=== PATIENT | female | born 1955 | race Caucasian/White ===

== ENCOUNTER 2018-01-14 09:45 | Inpatient (IN) ==
[2018-01-14] MEDS ORDERED: Chlorhexidine Gluconate 2% 1 Pack (2 Cloths) TOPICAL SCH (10:30)
[2018-01-14] MEDS ORDERED: Metoprolol Tartrate 25 MG Tablet PO SCH (10:30)
[2018-01-14] MEDS ORDERED: ceFAZolin 2 GM/NS 100 ML IV; Q8H IV.SIG ONE ×2 (11:00)
[2018-01-14] MEDS ORDERED: Sodium Chlor 0.9% Inj 500 ML IV.SIG SCH (11:00)
[2018-01-14 11:54] LABS: Baso # (Auto) 0.1 th/mm3 (0.0-0.2); Baso % (Auto) 0.8 % (0.0-2.0); Eos # (Auto) 0.4 th/mm3 (0.0-0.4); Eos % (Auto) 5.1 % (0.0-4.0); Hematocrit 36.8 % (35.0-46.0); Hemoglobin 12.2 gm/dL (11.6-15.3); Mean Corpuscular HGB Conc 33.2 % (32.0-36.0); Mean Corpuscular Hemoglobin 32.7 pg (27.0-34.0); Mean Corpuscular Volume 98.4 fL (80.0-100.0); Mean Platelet Volume 8.5 fL (7.0-11.0); Mono # (Auto) 0.7 th/mm3 (0.0-0.9); Mono % (Auto) 10.1 % (0.0-8.0); Neut # (Auto) 4.8 th/mm3 (1.8-7.7); Platelet Count 402 th/mm3 (150-450); Red Blood Count 3.74 mil/mm3 (4.00-5.30); Red Cell Distribution Width 14.1 % (11.6-17.2); White Blood Count 6.9 th/mm3 (4.0-11.0)
[2018-01-14] MEDS ORDERED: Neostigmine Inj 5 MG/5 ML Syringe IV.PUSH ONE (12:00)
[2018-01-14] MEDS ORDERED: Glycopyrrolate Inj 1 MG/5 ML Vial IV.PUSH ONE (12:00)
[2018-01-14] MEDS ORDERED: Lidocaine PF 1% Inj 5 ML Syringe INFILTRATN ONE (12:00)
[2018-01-14 12:07] LABS: Anion Gap 8 meq/L (5-15); Blood Urea Nitrogen 12 mg/dL (7-18); Calcium 9.3 mg/dL (8.5-10.1); Carbon Dioxide 30.8 meq/L (21.0-32.0); Chloride 105 meq/L (98-107); Glomerular Filtration Rate Greater Than 89 mL/min (>89); Glucose,Random 100 mg/dL (74-106); Sodium 144 meq/L (136-145)
[2018-01-14] MEDS ORDERED: Clindamycin Inj 600 MG/4 ML Vial ONE (13:16)
[2018-01-14] MEDS ORDERED: Ketamine Inj 500 MG/10 ML Vial ONE (13:55)
[2018-01-14] MEDS ORDERED: Morphine Inj 4 MG/ML Vial ONE (15:27)
[2018-01-14] MEDS ORDERED: Post-op Orders (for Pharmacy) OTHER STA (15:27)
[2018-01-14] MEDS ORDERED: fentaNYL Citrate Inj 100 MCG/2 ML Ampul ONE (15:27)
--- NOTE | 2018-01-14 15:34 | P.BOP ---
Date of procedure: 01/14/18 Procedure: ORIF right tibia fracture Implants: Synthes proximal tibia plate Anesthesia: GETA Surgeon: Lisandra Garcia MD Estimated blood loss (mL): 75 Pathology: none sent Condition: stable Disposition: PACU (NWB RLE)
[2018-01-14] MEDS ORDERED: HYDROmorphone PF Inj 2 MG/ML Vial ONE ×2 (15:35→16:19)
--- NOTE | 2018-01-14 15:36 | P.PNOP ---
Subjective Interval history: POD#0 s/p ORIF R tibia fracture Physical Exam Vital signs: Vital Signs 01/14/18 12:01 Temperature 97.9 F Pulse Rate 64 Respiratory Rate 18 Blood Pressure 135/74 Pulse Oximetry 97 Intake & Output 01/13/18 01/14/18 01/14/18 18:59 06:59 18:59 Intake Total 1500 / 1500 Output Total 225 / 225 Balance 1275 / 1275 Weight 62 kg Intake: Anesthesia Amount 1500 / 1500 Output: Urine 150 / 150 Estimated Blood Loss 75 / 75 Other: Weight On Admission 62 kg Results - Labs CBC & Chem 7: 01/14/18 11:30 01/14/18 11:30 Laboratory Results - last 24 hr 01/14/18 01/14/18 11:30 11:30 WBC 6.9 RBC 3.74 L Hgb 12.2 Hct 36.8 MCV 98.4 MCH 32.7 MCHC 33.2 RDW 14.1 Plt Count 402 MPV 8.5 Neut % (Auto) 70.0 Lymph % (Auto) 14.0 [place] % (Auto) 10.1 H Eos % (Auto) 5.1 H Baso % (Auto) 0.8 Neut # (Auto) 4.8 Lymph # (Auto) 1.0 [place] # (Auto) 0.7 Eos # (Auto) 0.4 Baso # (Auto) 0.1 WBC Differential . Differential Comment Auto diff final Sodium 144 Potassium 4.0 Chloride 105 Carbon Dioxide 30.8 Anion Gap 8 BUN 12 Creatinine 0.48 L Estimated GFR Greater than 89 Random Glucose 100 Calcium 9.3 Assessment and Plan - Assessment and Plan POD#0 s/p ORIF R tibia fracture 1. NWB RLE in KI. No knee ROM. 2. PT for mobilization. 3. Lovenox for VTE ppx. Can transition to Xarelto upon discharge 4. Plan for likely discharge home with POD#1 or POD#2 pending pain control
[2018-01-14] MEDS ORDERED: *Meperidine Inj 25 MG/ML Vial PERIprocedural Use ONLY ONE (15:42)
[2018-01-14] MEDS ORDERED: *morphine SULFATE 10 MG/ML PERIprocedure ONLY ONE ×3 (15:46→16:05)
--- NOTE | 2018-01-14 15:51 | XR ---
EXAM DATE: 01/14/2018 3:45 PM EDT AGE/SEX: 62 years / Female INDICATIONS: ORIF right tibia in OR. CLINICAL DATA: This is the patient's initial encounter. Patient reports that signs and symptoms have been present for 1 day and indicates a pain score of Nonresponsive. MEDICAL/SURGICAL HISTORY: Non-responsive. Non-responsive. COMPARISON: No prior exams available for comparison. FINDINGS: Side plate and multiple screws traverse the tibia with excellent anatomical alignment of t he bony structures. CONCLUSION: Intact postsurgical changes for technique. Electronically signed by: Abner Cruz MD 01/14/2018 3:50 PM EDT
[2018-01-14] MEDS ORDERED: HYDROmorphone PF Inj 2 MG/ML Vial IV.PUSH ONE (16:24)
[2018-01-14] MEDS ORDERED: Morphine Sulfate 100 MG SR Tablet PO ONE (16:45)
[2018-01-14] MEDS ORDERED: Furosemide 40 MG Tablet PO PRN (17:42)
--- NOTE | 2018-01-14 17:42 | P.CONIM ---
History of Present Illness Consult date: 01/14/18 Reason for Consult: Medical management Primary Care Provider: Sony Naidu DO Family Provider: Sony Naidu DO Chief Complaint: Elective surgery History of Present Illness: The patient is a 62-year-old female with past medical history of multiple sclerosis who is presenting to the hospital for elective ORIF of a right tib/ fib fracture. The patient had her surgery on 01/14/2018 and after surgery she had significant pain. The patient has a history of multiple sclerosis and she says she is in constant pain. She requires large amounts of opiates on a regular basis and the medications she received following surgery were not enough to control her pain. She did have pain at the site of the surgery but she also had the same whole-body pains that she gets from her multiple sclerosis. Medicine was consulted for pain management shortly thereafter. She received a dose of Dilaudid and was feeling a little bit better by the time of my examination. She still complained of muscle spasms. She said that she would be able to eat something of her pain was better controlled. Discussed with nursing at the bedside. Of note the patient states that she quit smoking but she does request that her below his smoke in her face. Review of Systems All other systems reviewed negative except as stated in HPI PMFSH - History History Provided By: Patient - Medical History Medical History: Medical History (Last Updated 01/14/18 @ 11:52 by Brenda Del Cid) Anemia Anxiety Arthritis Epilepsy Lock catheter in place Glaucoma Hepatitis B History of hysterectomy Hypertension Hypothyroidism Joint pain Metal bone fixation hardware in place Metal bone fixation hardware in place Multiple sclerosis Pain in right femur S/P ORIF (open reduction internal fixation) fracture Stroke Visual impairment - Surgical History Surgical History: Surgical History (Last Updated 01/14/18 @ 11:51 by Brenda Del Cid) H/O bilateral salpingo-oophorectomy History of back surgery History of laminectomy Hx of appendectomy - Tobacco History Second Hand Smoke Exposure: Yes Tobacco Use In Past 30 Days: No Smoking Status: Former smoker - Alcohol History How Often Do You Have a Drink Containing Alcohol: Monthly or less - Substance Use History Substance History: No History of Abuse - Travel History Recent Travel in the [place] Within the Last 8 Weeks: No Recent Travel Out of the Country Within the Last 8 Weeks: No Medications and Allergies Active Medications: Active Medications Al Hydroxide/Mg Hydroxide (Milk Of Magnlashon Liq) 30 ml PO BID PRN PRN Reason: MILD CONSTIPATION Chlorhexidine Gluconate (Chlorhexidine 2% Cloth) 3 pack TOPICAL TRACER LATHE SET UP OPERATOR [facility] Stop: 01/17/18 10:31 Cyclobenzaprine HCl (Flexeril) 10 mg PO Q8H PRN PRN Reason: MUSCLE SPASM Last Admin: 01/14/18 15:57 Dose: 10 mg Diphenhydramine HCl (Benadryl) 25 mg PO Q6H PRN PRN Reason: ITCHING Enoxaparin Sodium (Lovenox Inj) 40 mg SQ DAILY [facility] Lactated Ringer's (Lr 1000 Ml Inj) 1,000 mls @ 30 mls/hr IV.SIG .Q24H [facility] Stop: 01/17/18 10:31 Sodium Chloride (Ns Inj) 500 mls @ 30 mls/hr IV.SIG .Q10H [facility] Stop: 01/17/18 10:31 Clindamycin/Sodium Chloride (Cleocin 600 Mg/Ns Premix) 600 mg in 50 mls @ 100 mls/hr IV.SIG Q8H [facility] Metoprolol Tartrate (Lopressor) 25 mg PO TRACER LATHE SET UP OPERATOR [facility] Stop: 01/17/18 10:31 Miscellaneous Information ([facility] Nursing Information) 1 each OTHER UNSCH PRN PRN Reason: SEE LABEL COMMENTS Stop: 01/15/18 15:40 Morphine Sulfate (Morphine Inj) 2 mg IV.PUSH Q3H PRN PRN Reason: BREAKTHROUGH PAIN Multivitamins/Minerals (Theragran-M) 1 tab PO DAILY [facility] Ondansetron HCl (Zofran Inj) 4 mg IV.PUSH Q6H PRN PRN Reason: NAUSEA OR VOMITING Ondansetron HCl (Zofran Odt) 4 mg PO Q6H PRN PRN Reason: NAUSEA OR VOMITING Oxycodone/Acetaminophen (Percocet 5/325 Mg) 1 tab PO Q3H PRN PRN Reason: PAIN SCALE 1 TO 5 Povidone Iodine (Betadine 5% Antisepsis Kit) 1 applicatio EACH NARE TRACER LATHE SET UP OPERATOR [facility] Stop: 01/17/18 10:31 Senna/Docusate Sodium (Sloane-Colace) 1 tab PO BID [facility] Sennosides (Senokot) 17.2 mg PO BID PRN PRN Reason: Moderate Constipation Sodium Chloride (Ns Flush) 2 ml IV.FLUSH BID JULIA Sodium Chloride (Ns Flush) 2 ml IV.FLUSH PRN PRN PRN Reason: FLUSH AFTER USING IV ACCESS Allergies Allergy/AdvReac Type Severity Reaction Status Date / Time propoxyphene Allergy Intermediate RASH,N/V Verified 01/14/18 11:15 penicillin G Allergy Mild VOMTING Verified 01/14/18 11:14 Home Medications Medication Instructions Recorded Confirmed Type amlodipine [Norvasc] 10 mg PO DAILY 01/14/18 01/14/18 History aspirin [Aspirin Low Dose] 81 mg PO DAILY 01/14/18 01/14/18 History baclofen 20 mg PO TID 01/14/18 01/14/18 History brimonidine-timolol [Combigan] 1 drp OPHTHALMIC (EYE) BID 01/14/18 01/14/18 History calcium carbonate-vitamin D3 1 tab PO DAILY 01/14/18 01/14/18 History [Calcium 500 + D] cyanocobalamin (vitamin B-12) 1,000 mcg IM QMONTH 01/14/18 01/14/18 History dalfampridine [Ampyra] 10 mg PO Q12H 01/14/18 01/14/18 History dimethyl fumarate [Tecfidera] 240 mg PO BID 01/14/18 01/14/18 History diphenhydramine HCl [Benadryl] 25 mg PO BID PRN 01/14/18 01/14/18 History furosemide [Lasix] 40 mg PO DAILY PRN 01/14/18 01/14/18 History gabapentin [Neurontin] 600 mg PO QID 01/14/18 01/14/18 History levetiracetam [Keppra] 750 mg PO Q12H 01/14/18 01/14/18 History levothyroxine [Synthroid] 175 mcg PO DAILY 01/14/18 01/14/18 History methylphenidate HCl [Ritalin] 5 mg PO DAILY 01/14/18 01/14/18 History morphine [MS Contin] 100 mg PO Q8HR 01/14/18 01/14/18 History morphine concentrate 40 mg PO Q6H PRN 01/14/18 01/14/18 History qw-me-GK-vit D-xnjkm-pyv-coQ10 1 tab PO DAILY 01/14/18 01/14/18 History [Daily Multivitamin] naloxegol [Movantik] 25 mg PO QAM 01/14/18 01/14/18 History nitroglycerin 0.3 mg SUBLINGUAL Q5-15M PRN 01/14/18 01/14/18 History phenytoin sodium extended 200 mg PO BID 01/14/18 01/14/18 History [Dilantin Extended] potassium chloride 20 meq PO DAILY PRN 01/14/18 01/14/18 History promethazine [Phenergan] 25 mg QID PRN 01/14/18 01/14/18 History Exam Vital signs: Vital Signs 01/14/18 12:01 01/14/18 15:36 01/14/18 15:45 Temperature 97.9 F 98.0 F Pulse Rate 64 70 61 Respiratory Rate 18 16 21 Blood Pressure 135/74 168/105 H 194/94 H Pulse Oximetry 97 100 100 01/14/18 16:00 01/14/18 16:15 01/14/18 16:30 Temperature Pulse Rate 63 63 60 Respiratory Rate 24 24 25 H Blood Pressure 161/86 H 169/94 H 124/67 Pulse Oximetry 100 100 95 01/14/18 16:45 01/14/18 17:00 Temperature 98.0 F Pulse Rate 75 76 Respiratory Rate 29 H 22 Blood Pressure 154/70 H 154/98 H Pulse Oximetry 100 98 Intake & Output 01/13/18 01/14/18 01/14/18 18:59 06:59 18:59 Intake Total 1500 / 1500 Output Total 225 / 225 Balance 1275 / 1275 Weight 62 kg Intake: Anesthesia Amount 1500 / 1500 Output: Urine 150 / 150 Estimated Blood Loss 75 / 75 Other: Weight On Admission 62 kg Narrative: GEN: Appears uncomfortable HEENT: NC, AT LUNGS: CTAB HEART: RRR ABDOMEN: Soft, nontender EXTREMITIES: Right knee is bandaged and elevated. Her right foot is tender to palpation NEURO: Awake and alert. Results - Labs CBC & Chem 7: 01/14/18 11:30 01/14/18 11:30 Labs: Laboratory Results - last 24 hr 01/14/18 01/14/18 11:30 11:30 WBC 6.9 RBC 3.74 L Hgb 12.2 Hct 36.8 MCV 98.4 MCH 32.7 MCHC 33.2 RDW 14.1 Plt Count 402 MPV 8.5 Neut % (Auto) 70.0 Lymph % (Auto) 14.0 [place] % (Auto) 10.1 H Eos % (Auto) 5.1 H Baso % (Auto) 0.8 Neut # (Auto) 4.8 Lymph # (Auto) 1.0 [place] # (Auto) 0.7 Eos # (Auto) 0.4 Baso # (Auto) 0.1 WBC Differential . Differential Comment Auto diff final Sodium 144 Potassium 4.0 Chloride 105 Carbon Dioxide 30.8 Anion Gap 8 BUN 12 Creatinine 0.48 L Estimated GFR Greater than 89 Random Glucose 100 Calcium 9.3 - Imaging Impressions Tibia/Fibula X-Ray 01/14/18 00:00 CONCLUSION: Intact postsurgical changes for technique. Assessment and Plan - Plan Tib/fib fracture S/p ORIF 01/14/18. - wound care, weightbearing and anticoagulation per orthopedic surgery. - rehab efforts. - pain control with a bowel regimen. - incentive spirometry. Postoperative pain Superimposed on chronic pain. - resume home long-acting morphine tonight. - hold short acting morphine and cover with IV Dilaudid for now s/t acute on chronic pain. Resume home regimen when improved. MS The pt has chronic pain s/t MS and has developed complications over the years. - resume home MS regimen. - PT. HTN Exacerbated by pain. - resume home regimen. - clonidine as needed. PPx: Per surgery
[2018-01-14] MEDS: Morphine Inj 4 MG/ML Vial IV.PUSH PRN (17:43)
[2018-01-14] MEDS ORDERED: Non-Formulary Drug (Brimonidine-Timolol [Combigan] 1 DRP) EACH EYE SCH (21:00)
[2018-01-14] MEDS ORDERED: DALFAMPRIDINE PO SCH (21:00)
[2018-01-14] MEDS ORDERED: DIMETHYL FUMARATE PO SCH (21:00)
[2018-01-14] MEDS ORDERED: [UNRECOGNIZED DRUG - OTHER] PO SCH (21:00)
[2018-01-14] MEDS ORDERED: [UNRECOGNIZED DRUG - OTHER] PO SCH (21:00)
[2018-01-14] MEDS: Brimonidine 0.2% Opth Drops 5 ML Bottle EACH EYE SCH (21:49)
[2018-01-14] MEDS: Timolol 0.5% Drops 5 ML Bottle EACH EYE SCH (21:49)
[2018-01-14] MEDS: Senna/Docusate Sodium 8.6/50 MG Tablet PO SCH (21:50)
[2018-01-14] MEDS: Clindamycin 600 mg/NS Premix 600 MG/50 ML PIGGYBACK IV.SIG SCH (21:50)
[2018-01-14] MEDS: Phenytoin Sodium 100 MG Capsule PO SCH (21:50)
[2018-01-14] MEDS: levETIRAcetam 250 MG Tablet PO SCH (21:50)
[2018-01-14] MEDS: Gabapentin 300 MG Capsule PO SCH ×2 (21:50→23:26)
[2018-01-14] MEDS: HYDROmorphone PF Inj 2 MG/ML Vial IV.PUSH PRN (21:52)
[2018-01-14] MEDS: Morphine Sulfate 100 MG SR Tablet PO SCH (23:27)
[2018-01-15] MEDS: HYDROmorphone PF Inj 2 MG/ML Vial IV.PUSH PRN ×4 (03:03→21:05)
[2018-01-15] MEDS: Clindamycin 600 mg/NS Premix 600 MG/50 ML PIGGYBACK IV.SIG SCH ×3 (06:34→22:35)
[2018-01-15] MEDS: Levothyroxine 150 MCG Tablet PO SCH (06:34)
[2018-01-15] MEDS: Morphine Sulfate 100 MG SR Tablet PO SCH ×3 (06:34→22:35)
[2018-01-15] MEDS ORDERED: [UNRECOGNIZED DRUG - OTHER] PO SCH (08:00)
[2018-01-15] MEDS: Methylphenidate HCl 5 MG Tablet PO SCH (09:40)
[2018-01-15] MEDS: Gabapentin 300 MG Capsule PO SCH ×4 (09:41→20:57)
[2018-01-15] MEDS: Calcium/Vitamin D 250/125 MG Tablet PO SCH (09:41)
[2018-01-15] MEDS: amLODIPine 10 MG Tablet PO SCH (09:41)
[2018-01-15] MEDS: Phenytoin Sodium 100 MG Capsule PO SCH ×2 (09:41→20:58)
[2018-01-15] MEDS: Multivitamin/Minerals Therapeutic Tablet PO SCH (09:41)
[2018-01-15] MEDS: Enoxaparin Inj 40 MG/0.4 ML Syringe SQ SCH (09:42)
[2018-01-15] MEDS: Senna/Docusate Sodium 8.6/50 MG Tablet PO SCH ×2 (09:42→20:58)
[2018-01-15] MEDS: levETIRAcetam 250 MG Tablet PO SCH ×2 (09:42→20:58)
[2018-01-15] MEDS: Brimonidine 0.2% Opth Drops 5 ML Bottle EACH EYE SCH ×2 (09:45→20:58)
[2018-01-15] MEDS: Timolol 0.5% Drops 5 ML Bottle EACH EYE SCH ×2 (09:45→20:58)
--- NOTE | 2018-01-15 14:07 | P.PNIM ---
Subjective Interval history: The patient is a 62-year-old female with past medical history of multiple sclerosis who is presenting to the hospital for elective ORIF of a right tib/ fib fracture. The patient had her surgery on 01/14/2018 and after surgery she had significant pain. The patient has a history of multiple sclerosis and she says she is in constant pain. She requires large amounts of opiates on a regular basis and the medications she received following surgery were not enough to control her pain. She did have pain at the site of the surgery but she also had the same whole-body pains that she gets from her multiple sclerosis. Medicine was consulted for pain management shortly thereafter. She received a dose of Dilaudid and was feeling a little bit better by the time of my examination. She still complained of muscle spasms. She said that she would be able to eat something of her pain was better controlled. Discussed with nursing at the bedside. Of note the patient states that she quit smoking but she does request that her below his smoke in her face. 01-15 HAD SURGERY YESTERDAY 01-14 NEEDS PT AND OT EVAL WILL RESTART BACLOFEN INSTEAD OF FLEXERIL AM LABS DW RN AND PT AND CM Physical Exam Vital signs: Vital Signs 01/14/18 15:36 01/14/18 15:45 01/14/18 16:00 Temperature 98.0 F 97.9 F Pulse Rate 70 61 74 Respiratory Rate 16 21 18 Blood Pressure 168/105 H 194/94 H 135/71 Pulse Oximetry 100 100 99 01/14/18 16:15 01/14/18 16:30 01/14/18 16:45 Temperature Pulse Rate 63 60 75 Respiratory Rate 24 25 H 29 H Blood Pressure 169/94 H 124/67 154/70 H Pulse Oximetry 100 95 100 01/14/18 17:00 01/14/18 20:00 01/14/18 22:27 Temperature 98.0 F 98.3 F Pulse Rate 76 84 Respiratory Rate 22 18 18 Blood Pressure 154/98 H 138/75 Pulse Oximetry 98 95 01/14/18 23:57 01/15/18 00:00 01/15/18 03:33 Temperature 98.4 F Pulse Rate 74 Respiratory Rate 18 18 18 Blood Pressure 109/59 L Pulse Oximetry 95 01/15/18 04:00 01/15/18 08:00 07/21/18 12:00 Temperature 98.2 F 99 F 98.8 F Pulse Rate 74 80 76 Respiratory Rate 18 16 16 Blood Pressure 124/61 117/64 118/69 Pulse Oximetry 95 91 L 94 L Intake & Output 01/14/18 01/15/18 01/15/18 18:59 06:59 18:59 Intake Total 1500 / 1500 510 / 510 50 / 50 Output Total 225 / 225 1300 / 1300 Balance 1275 / 1275 -790 / -790 50 / 50 Weight 62 kg Intake: IV 50 / 50 50 / 50 Cleocin 600 mg/NS Premix 600 mg 50 / 50 50 / 50 In 50 ml @ 100 mls/hr IV.SIG Q8H [facility] Rx#:[id number] Oral 460 / 460 Anesthesia Amount 1500 / 1500 Output: Urine 150 / 150 1300 / 1300 Estimated Blood Loss 75 / 75 Other: Date of Last Bowel Movement 01/13/18 Weight On Admission 62 kg Narrative: GENERAL: Alert and oriented 3 talkative and cooperative does not feel comfortable yet SKIN: Warm and dry. HEAD: Atraumatic. Normocephalic. EYES: Pupils equal and round. No scleral icterus. No injection or drainage. ENT: No nasal bleeding or discharge. Mucous membranes pink and moist. NECK: Trachea midline. No JVD. CARDIOVASCULAR: Regular rate and rhythm. S1-S2 no S3 or S4 RESPIRATORY: No accessory muscle use. Clear to auscultation. Breath sounds equal bilaterally. GASTROINTESTINAL: Abdomen soft, non-tender, nondistended. Hepatic and splenic margins not palpable. MUSCULOSKELETAL: Extremities without clubbing, cyanosis, or edema. No obvious deformities. Right knee is bandaged and elevated and dressed right lower extremity NEUROLOGICAL: Awake and alert. No obvious cranial nerve deficits. Motor grossly within normal limits. 3 out of 5 muscle strength in the arms and legs. Normal speech. PSYCHIATRIC: Appropriate mood and affect; insight and judgment normal. Results - Labs CBC & Chem 7: 01/14/18 11:30 01/14/18 11:30 - Imaging Impressions Tibia/Fibula X-Ray 01/14/18 00:00 CONCLUSION: Intact postsurgical changes for technique. - Procedures Date of procedure: 01/14/18 Procedure: ORIF right tibia fracture Implants: Synthes proximal tibia plate Anesthesia: GETA Surgeon: Lisandra Garcia MD Assessment and Plan - Plan Tib/fib fracture S/p ORIF 01/14/18. - wound care, weightbearing and anticoagulation per orthopedic surgery. - rehab efforts. - pain control with a bowel regimen. - incentive spirometry. Postoperative pain Superimposed on chronic pain. - resume home long-acting morphine tonight. - hold short acting morphine and cover with IV Dilaudid for now s/t acute on chronic pain. Resume home regimen when improved. Multiple sclerosis The pt has chronic pain s/t MS and has developed complications over the years. - resume home MS regimen. - PT. HTN Exacerbated by pain. - resume home regimen. - clonidine as needed. We will set up for bedside commode and frontwheel walker. Patient would benefit probably from CIR/[facility] due to her long-standing multiple sclerosis Switch back to baclofen PPx: Per surgery Code Status: Full code Discussed Condition With: RN and patient and case management and family Discharge Planning: Pending slow improvement will need probable SNF versus [facility] if she agrees to it [facility] would probably be better for her
--- NOTE | 2018-01-15 14:39 | ECG ---
Date Performed: 01/14/2018 Time Performed: 12:20:56 PTAGE: 62 years EKG: Sinus rhythm When compared to previous tracing, no significant change. NORMAL ECG PREVIOUS TRACING : 01/05/2013 16.35 DOCTOR: Brian Albright Interpretating Date/Time 01/15/2018 14:37:30
[2018-01-16] MEDS: HYDROmorphone PF Inj 2 MG/ML Vial IV.PUSH PRN ×4 (04:02→17:47)
[2018-01-16] MEDS: Clindamycin 600 mg/NS Premix 600 MG/50 ML PIGGYBACK IV.SIG SCH ×3 (05:45→22:26)
[2018-01-16] MEDS: Levothyroxine 150 MCG Tablet PO SCH (05:45)
[2018-01-16] MEDS: Morphine Sulfate 100 MG SR Tablet PO SCH ×3 (05:46→22:25)
[2018-01-16 09:55] LABS: Baso % (Auto) 0.3 % (0.0-2.0); Eos # (Auto) 0.2 th/mm3 (0.0-0.4); Eos % (Auto) 2.4 % (0.0-4.0); Hematocrit 32.7 % (35.0-46.0); Hemoglobin 10.9 gm/dL (11.6-15.3); Lymph # (Auto) 0.7 th/mm3 (1.0-4.8); Lymph % (Auto) 9.2 % (9.0-44.0); Mean Corpuscular HGB Conc 33.4 % (32.0-36.0); Mean Corpuscular Hemoglobin 32.8 pg (27.0-34.0); Mean Corpuscular Volume 98.4 fL (80.0-100.0); Mean Platelet Volume 9.4 fL (7.0-11.0); Mono # (Auto) 0.9 th/mm3 (0.0-0.9); Mono % (Auto) 12.3 % (0.0-8.0); Neut # (Auto) 5.8 th/mm3 (1.8-7.7); Neut % (Auto) 75.8 % (16.0-70.0); Platelet Count 299 th/mm3 (150-450); Red Blood Count 3.33 mil/mm3 (4.00-5.30); Red Cell Distribution Width 14.1 % (11.6-17.2); White Blood Count 7.7 th/mm3 (4.0-11.0)
[2018-01-16] MEDS: Phenytoin Sodium 100 MG Capsule PO SCH ×2 (10:13→20:10)
[2018-01-16] MEDS: levETIRAcetam 250 MG Tablet PO SCH ×2 (10:13→20:10)
[2018-01-16] MEDS: Enoxaparin Inj 40 MG/0.4 ML Syringe SQ SCH (10:14)
[2018-01-16] MEDS: Gabapentin 300 MG Capsule PO SCH ×4 (10:14→20:10)
[2018-01-16] MEDS: amLODIPine 10 MG Tablet PO SCH (10:14)
[2018-01-16] MEDS: Calcium/Vitamin D 250/125 MG Tablet PO SCH (10:15)
[2018-01-16] MEDS: Senna/Docusate Sodium 8.6/50 MG Tablet PO SCH ×2 (10:15→20:10)
[2018-01-16] MEDS: Methylphenidate HCl 5 MG Tablet PO SCH (10:15)
[2018-01-16] MEDS: Multivitamin/Minerals Therapeutic Tablet PO SCH (10:15)
[2018-01-16 10:19] LABS: Albumin 2.6 g/dL (3.4-5.0); Anion Gap 7 meq/L (5-15); Aspartate Aminotransferase 19 U/L (15-37); Blood Urea Nitrogen 10 mg/dL (7-18); Calcium 8.6 mg/dL (8.5-10.1); Carbon Dioxide 32.4 meq/L (21.0-32.0); Chloride 104 meq/L (98-107); Glomerular Filtration Rate Greater Than 89 mL/min (>89); Glucose,Random 226 mg/dL (74-106); Magnesium 2.1 mg/dL (1.5-2.5); Potassium 3.8 meq/L (3.5-5.1); Sodium 143 meq/L (136-145)
[2018-01-16 10:20] LABS: Alanine Aminotransferase 17 U/L (10-53); Phosphorus 2.9 mg/dL (2.5-4.9)
[2018-01-16] MEDS: Brimonidine 0.2% Opth Drops 5 ML Bottle EACH EYE SCH ×2 (10:20→20:11)
[2018-01-16] MEDS: Timolol 0.5% Drops 5 ML Bottle EACH EYE SCH ×2 (10:21→20:11)
[2018-01-16 10:28] LABS: Alkaline Phosphatase 84 U/L (45-117); Free T4 (Free Thyroxine) 1.68 ng/dL (0.76-1.46); Thyroid Stimulating Hormone 0.336 uIU/mL (0.358-3.740); Total Protein 6.3 g/dL (6.4-8.2)
[2018-01-16 11:37] LABS: Hemoglobin A1c 5.1 % (4.3-6.0)
--- NOTE | 2018-01-16 12:31 | P.PNIM ---
Subjective Interval history: The patient is a 62-year-old female with past medical history of multiple sclerosis who is presenting to the hospital for elective ORIF of a right tib/ fib fracture. The patient had her surgery on 01/14/2018 and after surgery she had significant pain. The patient has a history of multiple sclerosis and she says she is in constant pain. She requires large amounts of opiates on a regular basis and the medications she received following surgery were not enough to control her pain. She did have pain at the site of the surgery but she also had the same whole-body pains that she gets from her multiple sclerosis. Medicine was consulted for pain management shortly thereafter. She received a dose of Dilaudid and was feeling a little bit better by the time of my examination. She still complained of muscle spasms. She said that she would be able to eat something of her pain was better controlled. Discussed with nursing at the bedside. Of note the patient states that she quit smoking but she does request that her below his smoke in her face. 01-15 HAD SURGERY YESTERDAY 01-14 NEEDS PT AND OT EVAL WILL RESTART BACLOFEN INSTEAD OF FLEXERIL AM LABS JENNY RN AND PT AND CM 01-16 WORKED WITH PT YESTERDAY CONTINUE PT AND OT [facility] VS SNF VS [facility] MAY BE TOO MUCH FOR JUST [facility] MAY NEED [facility] OR SNF Physical Exam Vital signs: Vital Signs 01/15/18 15:57 01/15/18 15:58 01/15/18 15:59 Temperature Pulse Rate Respiratory Rate 17 18 18 Blood Pressure Pulse Oximetry 01/15/18 16:00 01/15/18 20:00 01/16/18 00:00 Temperature 98.7 F 98.3 F 98.2 F Pulse Rate 75 70 71 Respiratory Rate 18 18 18 Blood Pressure 92/53 L 90/54 L 95/58 L Pulse Oximetry 91 L 95 96 01/16/18 04:00 Temperature 98.1 F Pulse Rate 69 Respiratory Rate 18 Blood Pressure 105/55 L Pulse Oximetry 95 Intake & Output 01/15/18 01/16/18 01/16/18 18:59 06:59 18:59 Intake Total 100 / 100 740 / 740 Output Total 900 / 900 Balance -800 / -800 740 / 740 Intake: IV 100 / 100 100 / 100 Cleocin 600 mg/NS Premix 600 mg 100 / 100 100 / 100 In 50 ml @ 100 mls/hr IV.SIG Q8H [facility] Rx#:[id number] Oral 640 / 640 Output: Urine 900 / 900 Other: # Voids 700 Date of Last Bowel Movement 01/13/18 Narrative: GENERAL: Alert and oriented 3 talkative and cooperative does not feel comfortable yet SKIN: Warm and dry. HEAD: Atraumatic. Normocephalic. EYES: Pupils equal and round. No scleral icterus. No injection or drainage. ENT: No nasal bleeding or discharge. Mucous membranes pink and moist. NECK: Trachea midline. No JVD. CARDIOVASCULAR: Regular rate and rhythm. S1-S2 no S3 or S4 RESPIRATORY: No accessory muscle use. Clear to auscultation. Breath sounds equal bilaterally. GASTROINTESTINAL: Abdomen soft, non-tender, nondistended. Hepatic and splenic margins not palpable. MUSCULOSKELETAL: Extremities without clubbing, cyanosis, or edema. No obvious deformities. Right knee is bandaged and elevated and dressed right lower extremity NEUROLOGICAL: Awake and alert. No obvious cranial nerve deficits. Motor grossly within normal limits. 3 out of 5 muscle strength in the arms and legs. Normal speech. PSYCHIATRIC: Appropriate mood and affect; insight and judgment normal. Results - Labs CBC & Chem 7: 01/16/18 08:41 01/16/18 08:41 Laboratory Results - last 24 hr 01/16/18 01/16/18 08:41 08:41 WBC 7.7 RBC 3.33 L Hgb 10.9 L Hct 32.7 L MCV 98.4 MCH 32.8 MCHC 33.4 RDW 14.1 Plt Count 299 MPV 9.4 Neut % (Auto) 75.8 H Lymph % (Auto) 9.2 [place] % (Auto) 12.3 H Eos % (Auto) 2.4 Baso % (Auto) 0.3 Neut # (Auto) 5.8 Lymph # (Auto) 0.7 L [place] # (Auto) 0.9 Eos # (Auto) 0.2 Baso # (Auto) 0.0 WBC Differential . Differential Comment Auto diff final Sodium 143 Potassium 3.8 Chloride 104 Carbon Dioxide 32.4 H Anion Gap 7 BUN 10 Creatinine 0.59 Estimated GFR Greater than 89 Random Glucose 226 H D Calcium 8.6 Phosphorus 2.9 Magnesium 2.1 Total Bilirubin 0.4 AST 19 ALT 17 Alkaline Phosphatase 84 Total Protein 6.3 L Albumin 2.6 L TSH 0.336 L Free T4 1.68 H - Procedures Date of procedure: 01/14/18 Procedure: ORIF right tibia fracture Implants: Synthes proximal tibia plate Anesthesia: GETA Surgeon: Lisandra Garcia MD Assessment and Plan - Plan Tib/fib fracture S/p ORIF 01/14/18. - wound care, weightbearing and anticoagulation per orthopedic surgery. - rehab efforts. - pain control with a bowel regimen. - incentive spirometry. Postoperative pain Superimposed on chronic pain. - resume home long-acting morphine tonight. - hold short acting morphine and cover with IV Dilaudid for now s/t acute on chronic pain. Resume home regimen when improved. Multiple sclerosis The pt has chronic pain s/t MS and has developed complications over the years. - resume home MS regimen. - PT. HTN Exacerbated by pain. - resume home regimen. - clonidine as needed. We will set up for bedside commode and frontwheel walker. Patient would benefit probably from CIR/[facility] due to her long-standing multiple sclerosis Switch back to baclofen PPx: Per surgery Code Status: FULL CODE Discussed Condition With: PT AND CM AND dental ceramist helper Planning: Pending slow improvement will need probable SNF versus [facility] if she agrees to it [facility] would probably be better for her
[2018-01-17] MEDS: HYDROmorphone PF Inj 2 MG/ML Vial IV.PUSH PRN (02:49)
[2018-01-17] MEDS: Clindamycin 600 mg/NS Premix 600 MG/50 ML PIGGYBACK IV.SIG SCH ×3 (05:41→23:45)
[2018-01-17] MEDS: Levothyroxine 150 MCG Tablet PO SCH (05:41)
[2018-01-17] MEDS: Morphine Sulfate 100 MG SR Tablet PO SCH ×2 (05:42→13:44)
[2018-01-17] MEDS: Phenytoin Sodium 100 MG Capsule PO SCH ×2 (09:33→23:24)
[2018-01-17] MEDS: Multivitamin/Minerals Therapeutic Tablet PO SCH (09:34)
[2018-01-17] MEDS: Gabapentin 300 MG Capsule PO SCH ×4 (09:34→23:24)
[2018-01-17] MEDS: Enoxaparin Inj 40 MG/0.4 ML Syringe SQ SCH (09:34)
[2018-01-17] MEDS: levETIRAcetam 250 MG Tablet PO SCH ×2 (09:34→23:23)
[2018-01-17] MEDS: Calcium/Vitamin D 250/125 MG Tablet PO SCH (09:34)
[2018-01-17] MEDS: Senna/Docusate Sodium 8.6/50 MG Tablet PO SCH ×2 (09:34→23:24)
[2018-01-17] MEDS: amLODIPine 10 MG Tablet PO SCH (09:34)
[2018-01-17] MEDS: Morphine Sulfate Oral Liq 10 MG/0.5 ML Syringe PO PRN ×2 (09:46→17:37)
[2018-01-17] MEDS: Brimonidine 0.2% Opth Drops 5 ML Bottle EACH EYE SCH ×2 (09:47→23:47)
[2018-01-17] MEDS: Timolol 0.5% Drops 5 ML Bottle EACH EYE SCH ×2 (09:47→23:46)
[2018-01-17] MEDS: Methylphenidate HCl 5 MG Tablet PO SCH (10:48)
--- NOTE | 2018-01-17 11:53 | P.PN ---
Subjective Interval history: Follow-up visit for right tubular/fibula ORIF 01/14. Patient seen and examined sitting up in chair this morning, ongoing right leg pain. Patient also states that she takes regular pain medication at home. Possible discharge home with to assist in care or rehab. She denies any fevers, chills, nausea, vomiting, diarrhea, cough or shortness of breath. Physical Exam Vital signs: Vital Signs 01/16/18 12:00 01/16/18 16:00 01/16/18 20:00 Temperature 36.6 C 36.8 C 36.7 C Pulse Rate 79 82 76 Respiratory Rate 16 16 17 Blood Pressure 83/50 L 102/52 L 96/64 L Pulse Oximetry 95 96 94 L 01/17/18 00:00 01/17/18 08:00 Temperature 36.6 C 36.7 C Pulse Rate 69 62 Respiratory Rate 17 Blood Pressure 106/59 L 95/54 L Pulse Oximetry 96 94 L Intake & Output 01/16/18 01/17/18 01/17/18 18:59 06:59 18:59 Intake Total 800 / 800 50 / 50 Output Total 1450 / 1450 Balance -650 / -650 50 / 50 Intake: IV 50 / 50 50 / 50 Cleocin 600 mg/NS Premix 600 mg 50 / 50 50 / 50 In 50 ml @ 100 mls/hr IV.SIG Q8H [facility] Rx#:[id number] Oral 750 / 750 Output: Urine 1450 / 1450 Other: Date of Last Bowel Movement 01/13/18 Narrative: GENERAL: Developed female sitting up in chair, in no acute distress. SKIN: Warm and dry. HEAD: Atraumatic. Normocephalic. EYES: Pupils equal and round. No scleral icterus. No injection or drainage. ENT: No nasal bleeding or discharge. Mucous membranes pink and moist. NECK: Trachea midline. No JVD. CARDIOVASCULAR: Regular rate and rhythm. RESPIRATORY: No accessory muscle use. Clear to auscultation. Breath sounds equal bilaterally. GASTROINTESTINAL: Abdomen soft, non-tender, nondistended. + Bowel sounds in all quadrants. MUSCULOSKELETAL: Extremities without clubbing or cyanosis. No obvious deformities. Right leg with Freddy wrap and splint in place, trace edema to foot noted. NEUROLOGICAL: Awake and alert. No obvious cranial nerve deficits. Motor grossly within normal limits, right LE strength limited due to pain and surgery. Normal speech. PSYCHIATRIC: Appropriate mood and affect; insight and judgment normal. Results - Labs CBC & Chem 7: 01/16/18 08:41 01/16/18 08:41 Laboratory Results - last 24 hr 01/16/18 08:41 Hemoglobin A1c 5.1 - Procedures Date of procedure: 01/14/18 Procedure: ORIF right tibia fracture Implants: Synthes proximal tibia plate Anesthesia: GETA Surgeon: Lisandra Garcia MD Assessment and Plan - Plan Tib/fib fracture S/p ORIF 01/14/18. - wound care, weightbearing and anticoagulation per orthopedic surgery. - rehab efforts. - pain control with a bowel regimen. - incentive spirometry. Postoperative pain Superimposed on chronic pain. - resume home long-acting morphine. - continue short acting morphine and cover with IV Dilaudid for breakthrough pain. Multiple sclerosis The pt has chronic pain s/t MS and has developed complications over the years. - resume home MS regimen. - PT. HTN -On the lower side this morning, will decrease Norvasc to 5 mg daily. - clonidine as needed. Hypothyroidism - Currently on Levothyroxine 25mcg daily - TSH 0.336, free T4 1.68, unknown if recently had this adjusted. Can follow up with PCP DVT prophylaxis-subcu Lovenox Discussed Condition With: Discussed with patient and nurse. Discharge Planning: Pending orthopedic clearance, continue to work on pain control. Patient would benefit probably from JUSTIN/Tom due to her long-standing multiple sclerosis, she has refused CIR Santos. Would like to be DC home when ready. BSC and walker DME order in place.
[2018-01-17] MEDS: amLODIPine 5 MG Tablet PO SCH (13:45)
[2018-01-17] MEDS: Morphine Inj 4 MG/ML Vial IV.PUSH PRN (17:44)
[2018-01-18] MEDS: Morphine Sulfate 100 MG SR Tablet PO SCH ×4 (00:59→22:11)
[2018-01-18] MEDS: HYDROmorphone PF Inj 2 MG/ML Vial IV.PUSH PRN (01:09)
[2018-01-18] MEDS: Levothyroxine 150 MCG Tablet PO SCH (06:05)
[2018-01-18] MEDS: Clindamycin 600 mg/NS Premix 600 MG/50 ML PIGGYBACK IV.SIG SCH ×2 (06:11→14:15)
[2018-01-18] MEDS: levETIRAcetam 250 MG Tablet PO SCH ×2 (08:28→22:10)
[2018-01-18] MEDS: Methylphenidate HCl 5 MG Tablet PO SCH (08:28)
[2018-01-18] MEDS: Phenytoin Sodium 100 MG Capsule PO SCH ×2 (08:28→22:11)
[2018-01-18] MEDS: Gabapentin 300 MG Capsule PO SCH ×4 (08:28→22:11)
[2018-01-18] MEDS: Senna/Docusate Sodium 8.6/50 MG Tablet PO SCH ×2 (08:29→22:10)
[2018-01-18] MEDS: Calcium/Vitamin D 250/125 MG Tablet PO SCH (08:29)
[2018-01-18] MEDS: amLODIPine 5 MG Tablet PO SCH (08:29)
[2018-01-18] MEDS: Morphine Inj 4 MG/ML Vial IV.PUSH PRN (08:30)
[2018-01-18] MEDS: Enoxaparin Inj 40 MG/0.4 ML Syringe SQ SCH (08:30)
[2018-01-18] MEDS: Multivitamin/Minerals Therapeutic Tablet PO SCH (08:30)
--- NOTE | 2018-01-18 13:17 | P.DCO ---
- Physical Therapy Order: Evaluate and treat, Improve ambulation, Strength and gait training - Home Health Nursing Order: Wound care and dressing changes (Daily Xeroform 4x4 cover with Freddy wrap.) - Certification I have seen patient Christina Edwards on 01/18/18. My clinical findings support the need for the requested home health care services because: Limited mobility due to disease progression I certify that my clinical findings support that this patient is homebound because: Post-op weakness
[2018-01-18] MEDS: Brimonidine 0.2% Opth Drops 5 ML Bottle EACH EYE SCH ×2 (14:14→22:13)
[2018-01-18] MEDS: Timolol 0.5% Drops 5 ML Bottle EACH EYE SCH ×2 (14:14→22:13)
[2018-01-18] MEDS: Morphine Sulfate Oral Liq 10 MG/0.5 ML Syringe PO PRN (16:03)
--- NOTE | 2018-01-18 17:01 | P.PN ---
Subjective Interval history: Follow-up visit for right tubular/fibula ORIF 01/14. Patient was seen and examined earlier today, this morning resting in bed in no acute distress with nurse at bedside. Discussed discontinuing Lock catheter as well as discontinue IV pain medication for plans to discharge either today or tomorrow. Patient denies any fevers, chills, nausea, vomiting, diarrhea, cough, shortness of breath or chest pain. nurse clarified with with the for clearanceLeticia recommendations for 2 weeks. Patient refused to go to rehab and requesting to be discharged home. video manager working on arranging equipment at home. Later today patient requesting to be discharged however wheelchair with elevated leg rest has not yet been delivered and will most likely be delivered tomorrow. Discussed with family caseworker, charge nurse, and patient. Patient is requesting to be discharged and son who has a stretcher can assist with transportation, however discussed with patient that this is still not a safe discharge as she is still nonweightbearing on right lower extremity. Physical Exam Vital signs: Vital Signs 01/17/18 20:00 01/18/18 00:00 01/18/18 04:00 Temperature 37.0 C 36.6 C 36.7 C Pulse Rate 63 72 59 L Respiratory Rate 16 16 18 Blood Pressure 96/55 L 114/69 92/51 L Pulse Oximetry 91 L 97 96 01/18/18 08:00 01/18/18 12:00 01/18/18 16:00 Temperature 36.5 C 36.9 C 36.9 C Pulse Rate 64 74 67 Respiratory Rate 16 16 16 Blood Pressure 102/53 L 119/59 L 110/57 L Pulse Oximetry 97 93 L 92 L Intake & Output 01/17/18 01/18/18 01/18/18 18:59 06:59 18:59 Intake Total 650 / 650 170 / 170 530 / 530 Output Total 700 / 700 550 / 550 Balance -50 / -50 -380 / -380 529 / 529 Weight 60.1 kg Intake: IV 50 / 50 50 / 50 50 / 50 Cleocin 600 mg/NS Premix 600 mg 50 / 50 50 / 50 50 / 50 In 50 ml @ 100 mls/hr IV.SIG Q8H [facility] Rx#:[id number] Oral 600 / 600 120 / 120 480 / 480 Output: Urine 700 / 700 550 / 550 Stool Other: # Voids 1 Date of Last Bowel Movement 01/13/18 01/13/18 01/13/18 # Bowel Movements 0 Narrative: GENERAL: Developed female, in no acute distress. SKIN: Warm and dry. HEAD: Atraumatic. Normocephalic. EYES: Pupils equal and round. No scleral icterus. No injection or drainage. ENT: No nasal bleeding or discharge. Mucous membranes pink and moist. NECK: Trachea midline. CARDIOVASCULAR: Regular rate and rhythm. RESPIRATORY: No accessory muscle use. Clear to auscultation. Breath sounds equal bilaterally. GASTROINTESTINAL: Abdomen soft, non-tender, nondistended. + Bowel sounds in all quadrants. MUSCULOSKELETAL: Extremities without clubbing or cyanosis. No obvious deformities. Right leg with Freddy wrap and splint in place, trace edema to foot noted. NEUROLOGICAL: Awake and alert. No obvious cranial nerve deficits. Motor grossly within normal limits, right LE strength limited due to pain and surgery. Normal speech. - Urinary Catheter Management Indwelling Urethral Catheter Cath placed during this visit: yes, but has since been removed by the nurse Reason for continuing: Decision to DC catheter Removal date: 01/18/18 Removal time: 12:10 Results - Labs CBC & Chem 7: 01/16/18 08:41 01/16/18 08:41 - Procedures Date of procedure: 01/14/18 Procedure: ORIF right tibia fracture Implants: Synthes proximal tibia plate Anesthesia: GETA Surgeon: Lisandra Gracia MD Assessment and Plan - Plan Tib/fib fracture S/p ORIF 01/14/18. - wound care, weightbearing and anticoagulation per orthopedic surgery. Home health orders for dressing changes placed. - rehab efforts. - pain control with a bowel regimen. Patient will be discharged on her regular chronic pain medication, DC IV pain meds today. -Recommendations from Orth O for Xarelto 10 mg daily for 2 weeks Postoperative pain Superimposed on chronic pain. -Continue chronic pain medications. Multiple sclerosis The pt has chronic pain s/t MS and has developed complications over the years. - resume home MS regimen. - PT. HTN -BP better today, discontinue Norvasc. - clonidine as needed. Hypothyroidism - Currently on Levothyroxine 175mcg daily - TSH 0.336, free T4 1.68, need to follow-up with PCP for dose adjustments. DVT prophylaxis-subcu Lovenox, will be DC'd on Xarelto Discussed Condition With: Discussed with patient, nurse, charge nurse, and family caseworker. Discharge Planning: Ortho. had cleared patient for discharge with recommendations for Xarelto for DVT prophylaxis, okay to continue low-dose aspirin. [id number] placed in chart for wound care and PT. Patient already has a commode at home and walker at home. Wheelchair with raised leg rest will not be able to be delivered today, transport will also have to be set up for tomorrow. Extensive discussion with patient, family caseworker, nurse, and charge nurse regarding holding discharge as this is unsafe. Although patient does have who will be taking care of her, she still remains nonweightbearing on right lower extremity. Discharge held until wheelchair has been delivered tomorrow and proper transport has been established.
[2018-01-19] MEDS: Levothyroxine 150 MCG Tablet PO SCH (06:20)
[2018-01-19] MEDS: Morphine Sulfate 100 MG SR Tablet PO SCH ×2 (06:20→13:13)
[2018-01-19] MEDS: Brimonidine 0.2% Opth Drops 5 ML Bottle EACH EYE SCH (08:05)
[2018-01-19] MEDS: Phenytoin Sodium 100 MG Capsule PO SCH (08:05)
[2018-01-19] MEDS: Multivitamin/Minerals Therapeutic Tablet PO SCH (08:06)
[2018-01-19] MEDS: Gabapentin 300 MG Capsule PO SCH ×2 (08:06→13:13)
[2018-01-19] MEDS: Calcium/Vitamin D 250/125 MG Tablet PO SCH (08:06)
[2018-01-19] MEDS: Methylphenidate HCl 5 MG Tablet PO SCH (08:06)
[2018-01-19] MEDS: levETIRAcetam 250 MG Tablet PO SCH (08:06)
[2018-01-19] MEDS: Senna/Docusate Sodium 8.6/50 MG Tablet PO SCH (08:06)
[2018-01-19] MEDS: Enoxaparin Inj 40 MG/0.4 ML Syringe SQ SCH (08:06)
[2018-01-19] MEDS: Morphine Sulfate Oral Liq 10 MG/0.5 ML Syringe PO PRN (08:07)
[2018-01-19] MEDS: Timolol 0.5% Drops 5 ML Bottle EACH EYE SCH (08:07)
--- NOTE | 2018-01-19 08:10 | P.DS ---
Date of admission: 01/16/18 17:36 Primary care physician: Sony Naidu, Attending physician on discharge: Celestino Blas Anticipated date of discharge: 01/19/18 Brief History from admission: The patient is a 62-year-old female with past medical history of multiple sclerosis who is presenting to the hospital for elective ORIF of a right tib/ fib fracture. DS: Medications - Discharge Medications Prescriptions: rivaroxaban [Xarelto] 10 mg PO DAILY #14 tab DS: Summary Hospital Course: 62-year-old female with an extensive past medical history including HTN, hypothyroidism, epilepsy, MS, stroke, and arthritis who presented to the hospital on 01/14 for an elective ORIF of right tibia and fibula. During her hospitalization patient experience significant right leg pain, she also has a history of chronic pain for which he takes oral morphine at home. Medication adjustments were made by hospitalist team, patient worked with PT and mobilized out of bed. Cleared for discharge by orthopedic surgeon with instructions for nonweightbearing on right lower extremity and follow-up as outpatient. Arrangements have been made in today her wheelchair with elevated leg rest has been delivered at bedside, discussed with case monitor for transport set up. Patient will be discharged home as she declined rehab, reports that who is at home will assist with care. Home health has also been arranged to assist patient. She is seen and examined this morning resting comfortably in bed, appears to be in no acute distress. She denies any fevers, chills, cough, shortness of breath or headache overnight. She is ready to go home today. She does voice some frustration over the fact that nurses have been unable to assist with toileting on a timely manner last night, is looking forward to going home where she states her will be tending to her needs. [facility] was checked, patient had Rx for Morphine sulfate ER 100mg tabs #90 by on 12/27/17 and Morphine sulfate liquid 30 days worth filled on also by . No additional medications will be prescribed at this time. - Time Spent with Patient Total time spent providing and/or coordinating discharge services: Less than 30 minutes - Quality: VTE Deep Vein Thrombosis/Pulmonary Embolism Present on Admission: No Exam Vital signs: Vital Signs 01/18/18 12:00 01/18/18 16:00 01/18/18 20:00 Temperature 36.9 C 36.9 C 36.5 C Pulse Rate 74 67 75 Respiratory Rate 16 16 18 Blood Pressure 119/59 L 110/57 L 100/56 L Pulse Oximetry 93 L 92 L 94 L 01/19/18 00:00 01/19/18 04:00 Temperature 36.6 C 36.5 C Pulse Rate 59 L 60 Respiratory Rate 20 18 Blood Pressure 92/51 L 102/54 L Pulse Oximetry 93 L 93 L Intake & Output 01/18/18 01/19/18 01/19/18 18:59 06:59 18:59 Intake Total 530 / 530 360 / 360 Output Total Balance 529 / 529 360 / 360 Weight 61 kg Intake: IV 50 / 50 Cleocin 600 mg/NS Premix 600 mg 50 / 50 In 50 ml @ 100 mls/hr IV.SIG Q8H [facility] Rx#:[id number] Oral 480 / 480 360 / 360 Output: Stool Other: # Voids 1 2 Date of Last Bowel Movement 01/13/18 Narrative: GENERAL: Developed female sitting up in bed in no acute distress. SKIN: Warm and dry. HEAD: Atraumatic. Normocephalic. EYES: Pupils equal and round. No scleral icterus. No injection or drainage. CARDIOVASCULAR: Regular rate and rhythm. RESPIRATORY: No accessory muscle use. Clear to auscultation. Breath sounds equal bilaterally. GASTROINTESTINAL: Abdomen soft, non-tender, nondistended. + Bowel sounds in all quadrants. MUSCULOSKELETAL: Extremities without clubbing or cyanosis. No obvious deformities. Right leg with Freddy wrap and splint in place, trace edema to foot noted. NEUROLOGICAL: Awake and alert. No obvious cranial nerve deficits. Motor grossly within normal limits, right LE strength limited due to pain and surgery. Normal speech. Results Procedures completed during hospitalization: Date of procedure: 01/14/18 Procedure: ORIF right tibia fracture Implants: Synthes proximal tibia plate Anesthesia: GETA Surgeon: Lisandra Garcia MD - Impressions ITS Impressions Tibia/Fibula X-Ray 01/14/18 00:00 CONCLUSION: Intact postsurgical changes for technique. Discharge Plan - Discharge Disposition Patient Disposition: 01 Discharge Home - Discharge Condition Condition: Fair - Discharge Order Discharge Orders: Discharge Order (Routine); Ordered 01/19/18 Ordered By: Lamin Alvarez - Discharge Details Anticipated Discharge Date: 01/19/18 - Physicians Team Primary Care Provider: Sony Naidu Attending Provider: Celestino Blas Other Providers: Yakov Hernandez DO ; [facility] - Rxs /Orders / Referrals /Forms Prescriptions: New rivaroxaban [Xarelto] 10 mg Tablet 10 mg PO DAILY Qty: 14 RF: 0 Continue aspirin [Aspirin Low Dose] 81 mg Tablet,Delayed Release (Dr/Ec) 81 mg PO DAILY baclofen 20 mg Tablet 20 mg PO TID brimonidine-timolol [Combigan] 0.2-0.5 % Drops 1 drp OPHTHALMIC (EYE) BID calcium carbonate-vitamin D3 [Calcium 500 + D] 500 mg(1,250mg) -400 unit Tablet 1 tab PO DAILY cyanocobalamin (vitamin B-12) 1,000 mcg/mL Solution 1,000 mcg IM QMONTH dalfampridine [Ampyra] 10 mg Tablet Extended Release 12 Hr 10 mg PO Q12H dimethyl fumarate [Tecfidera] 240 mg Capsule,Delayed Release(Dr/Ec) 240 mg PO BID furosemide [Lasix] 40 mg Tablet 40 mg PO DAILY PRN (Reason: Edema) gabapentin [Neurontin] 600 mg Tablet 600 mg PO QID levetiracetam [Keppra] 750 mg Tablet 750 mg PO Q12H levothyroxine [Synthroid] 175 mcg Tablet 175 mcg PO DAILY methylphenidate HCl [Ritalin] 5 mg Tablet 5 mg PO DAILY morphine concentrate 100 mg/5 mL (20 mg/mL) Solution 40 mg PO Q6H PRN (Reason: Pain) morphine [MS Contin] 100 mg Tablet Extended Release 100 mg PO Q8HR [id number] [Daily Multivitamin] 200-100-500 mcg Capsule 1 tab PO DAILY naloxegol [Movantik] 25 mg Tablet 25 mg PO QAM nitroglycerin 0.3 mg Tablet, Sublingual 0.3 mg SUBLINGUAL Q5-15M PRN (Reason: CHEST PAIN) phenytoin sodium extended [Dilantin Extended] 100 mg Capsule 200 mg PO BID potassium chloride 20 mEq Tablet Extended Release 20 meq PO DAILY PRN (Reason: WITH LASIX) Discontinued amlodipine [Norvasc] 10 mg Tablet 10 mg PO DAILY diphenhydramine HCl [Benadryl] 25 mg Capsule 25 mg PO BID PRN (Reason: Itching) promethazine [Phenergan] 25 mg Suppository 25 mg QID PRN (Reason: Nausea And Vomiting) Ambulatory Orders / Order Sets / DME: Abdoulaye in (1 each) (Routine) Timeframe: 99 Months Location: Determined by Patient Ordered By: Jimenez Woodson Walker With Front Wheels (1 each) (Routine) Timeframe: 99 Months Location: Determined by Patient Ordered By: Jimenez Woodson Wheelchair (1 each) (Routine) Location: Determined by Patient Ordered By: Lamin Alvarez Referrals: Lisandra Garcia MD [Physician] - See Instructions Sony Naidu DO [Primary Care Provider] - See Instructions
--- NOTE | 2018-01-21 10:34 | P.OP ---
Date of procedure: 01/14/18 Procedure: Open reduction internal fixation right proximal tibial metaphyseal and diaphyseal tibia fracture Removal of external fixator right lower extremity Implants: Synthes proximal tibial plateau plate and screws Anesthesia: GETA Surgeon: Lisandra Garcia MD Estimated blood loss (mL): 50 Pathology: none sent Operation and Findings: Indications for procedure: Patient is a 62-year-old female who sustained a closed right proximal tibial metaphyseal and diaphyseal fracture. Initially, patient had significant knee and lower leg swelling and at that time recommendation for application of external fixator to the right lower extremity. At this time, patient's soft tissue swelling has significantly improved and therefore recommendation removal of external fixator and open reduction internal fixation of her right tibia fracture. Risks of surgery including but not limited to: Infection, nonunion or malunion, hardware malposition or failure, neurovascular injury, persistent knee pain and/or stiffness, possible need for further surgery, and other unforeseen Locations were discussed with the patient. At this time she's agreed to the above- mentioned procedure. Description of procedure: Patient was brought back to the operating room and placed supine on operating room table with all bony prominences well-padded. General anesthesia then ensued. A tourniquet was placed on the upper thigh above the proximal aspect of the external fixator. Patient was then prepped and draped in standard sterile fashion with the external fixator pins left in place. A timeout was performed with antibiotic patient, side, site and procedure to be performed. Preoperative antibiotic was given within 1 hour of incision. The leg was exsanguinated and the tourniquet then inflated to 250 mmHg. A curvilinear incision was made over the proximal aspect of the tibia extending down the tibial shaft to allow access to the tibial plateau and proximal tibial metaphysis. Sharp dissection was performed through skin and subcutaneous knees tissue. A longitudinal incision was made into the IT band. The tibialis anterior was subperiosteally elevated off the proximal aspect of the tibia to allow the plate to be positioned on this area. The fracture was reduced with the use of bone clamps and traction. The external fixator pins were used to provide distraction to ensure the fracture was out to length. A Synthes tibial plateau plate was then placed over the lateral aspect of the tibia once the fracture was verified to be in appropriate alignment on AP and lateral radiographs. This was held in place with K wires. The plate was verified to be in appropriate position and at this time a nonlocking screw was placed. Again the plate was verified in appropriate position and proximal locking screws were then placed through the plate. These were verified in appropriate position and out of the joint surface. At this time the distal nonlocking screws were then placed through separate small incisions using perfect [place] technique. These were drilled, measured and appropriate length screws placed. At this time the clamp was removed along with the external fixator. The fracture appeared to be in appropriate alignment on AP and lateral radiographs and out to appropriate length. The hardware was in good position. At this time the external fixator pins were removed. The wound was copiously irrigated with normal saline with gentamicin. The tourniquet was released and hemostasis was achieved with electrocautery. The IT band was closed with Vicryl sutures. The subcutaneous tissue was then closed with Vicryl sutures and the skin closed with nylon. Sterile dressings were applied. Patient was placed into a knee immobilizer. Patient was awoken from general anesthesia without consultation. Disposition: Nonweightbearing right lower extremity. Patient is to remain in knee immobilizer until follow-up in approximately 2-3 weeks.
== END 2018-01-19 14:37 | disposition home or self-care (01) ==
LOC: HSDI 09:45 → HSDC 15:15 → N06 17:22
PROVIDERS: ADMIT Family Medicine; ATTEND Family Medicine